=== PATIENT | female | born 1950 | race Caucasian/White ===

== ENCOUNTER → 2018-07-13 | Outpatient (CLI) | payer OTHER ==
[~2018-07-13] MED LIST: COUMADIN 5 MG TA5 M1 PO; FISH OIL + VIT1 EACH PO; FOLIC ACID 1 MG1 MG PO; FOLIC ACID1 MG PO; LOVENOX SQ; METHOCARBAMOL500 M1 PO; NAPROSYN250 MG PO; NAPROSYN375 MG PO; NEPHROCAPS SOFT1 CAP PO; NORCO 5-325 TA1 EACH PO; PREMARIN0.625 MG PO; RHEUMATREX2.5 MG PO; SULFASALAZINE500 M4 PO; THERA-M CAPLET1 EACH PO; TRAMADOL 50 MG50 MG PO; VITAMIN D1000 UNI1 PO; ZOLOFT 50 MG TA50 M1 PO
== END ==
LOC: RAD 04:53
DX: Z12.31 Encounter for screening mammogram for malignant neoplasm of breast (principal)

== ENCOUNTER → 2019-07-15 | Outpatient (CLI) | payer OTHER | LOC: RAD 06-27 09:20 | DX: Z12.31 Encounter for screening mammogram for malignant neoplasm of breast (principal) ==

== ENCOUNTER → 2020-04-27 | Outpatient (CLI) | payer OTHER | LOC: RAD 11:34 | PROVIDERS: ATTEND Internal Medicine Rheumatology | DX: M25.78 Osteophyte, vertebrae (principal) ==

== ENCOUNTER → 2020-06-02 | Outpatient (CLI) | payer OTHER | LOC: MRI 09:24 | PROVIDERS: ATTEND Internal Medicine Rheumatology | DX: M50.21 Other cervical disc displacement, high cervical region (principal); M85.68 Other cyst of bone, other site; M43.22 Fusion of spine, cervical region; M47.812 Spondylosis without myelopathy or radiculopathy, cervical region; M48.02 Spinal stenosis, cervical region ==

== ENCOUNTER → 2020-08-10 | Outpatient (CLI) | payer OTHER ==
[~2020-08-10] VITALS: Ht 160 cm; Wt 77.1 kg
[~2020-08-10] MED LIST changes: +LOW DOSE ASPIRI81 M1 PO; +NEURONTIN100 MG PO
[2020-08-10 13:40] VITALS: BP 145/80
--- NOTE | 2020-08-10 13:57 | NUR ---
Pain Clinic Assessment: 1. History of Osteoarthritis: DENIES History of Rheumatoid Arthritis: HANDS NECK KNEES 2. Height: 5 ft. 3 in. 160.0 cm. Weight: 170.0 lb. oz. 77.112 kg. Patient's BMI: 30.1 3. Vital Signs: BP: 145/80 Pulse: 64 Resp: 16 Temp: 02 Sat: 97 ECG Mon: 4. Pain Intensity: 8 5. Fall Risk: Dizziness: N Needs help standing or walking: N Fallen in the last 3 months: N Fall risk comments: 6. Patient on Blood Thinner: None 7. History of Hypertension: N 8. Opioid Therapy greater than 6 weeks: N Opiate Contract Signed: 9. Risk Assessment Tool Provided: 1/LOW RISK 10. Functional Assessment Tool: 36 11. Recreational Drug Use: Never Drug Type: Tobacco Use: Never Smoker Tobacco Type: Amount or Packs/day: How Many Years: Alcohol Use: Yes Frequency: Weekly Quant: 1-2 DRINKS
== END ==
LOC: PAIN 06:51
PROVIDERS: ATTEND Anesthesiology Pain Medicine
DX: R51.9 Headache, unspecified (principal); M06.9 Rheumatoid arthritis, unspecified; M43.22 Fusion of spine, cervical region; G62.9 Polyneuropathy, unspecified; Z96.641 Presence of right artificial hip joint

== ENCOUNTER 2020-12-21 11:00 | Inpatient (IN) | payer OTHER ==
[~2020-12-21] VITALS: Ht 160 cm; Wt 71.7 kg
[2020-12-21 11:12] VITALS: BP 119/71
[2020-12-21 11:52] LABS: ABSOLUTE NEUTROPHILS 10.4 thou/uL (1.4-8.2); BASOPHILS 0.7 % (0.0-2.0); EOSINOPHILS 0.4 % (0.0-3.0); HEMATOCRIT 40.6 % (37.0-47.0); HEMOGLOBIN 13.9 gm/dL (12.0-15.0); MCH 32.9 pg (26.0-34.0); MCHC 34.2 g/dL (28.0-37.0); MCV 96.2 fL (80.0-100.0); MONOCYTES 8.3 % (1.0-8.0); PLATELET COUNT 180 thou/uL (150-400); POLYS 81.6 % (36.0-66.0); RBC 4.22 mil/uL (4.20-5.00); RDW 13.6 % (10.5-14.5); WBC 12.7 thou/uL (4.0-11.0)
[2020-12-21 12:03] LABS: CALCIUM 10.5 mg/dL (8.5-10.1); CREATININE 0.9 mg/dL (0.6-1.0); POTASSIUM 3.7 mmol/L (3.5-5.1)
[2020-12-21 12:09] LABS: ALBUMIN 3.9 g/dL (3.4-5.0); TOTAL BILIRUBIN 0.7 mg/dL (0.2-1.0); TOTAL PROTEIN 7.4 g/dL (6.4-8.2)
[2020-12-21 15:10] VITALS: BP 127/58
[2020-12-21 18:25] VITALS: BP 123/61
[2020-12-21 19:49] VITALS: BP 128/69
--- NOTE | 2020-12-21 20:00 | NUR ---
Pt. admitted earlier during the first shift. She is alert and oriented. Pt. offers no complaints. Admisssion assessment and history is completed.
--- NOTE | 2020-12-22 06:00 | NUR ---
Pt. rested quietly during the night when checked on during frequent rounds. She offers no c/o pain. Pt. did have a small amount of reddish colored watery stool.
[2020-12-22 06:08] LABS: ABSOLUTE NEUTROPHILS 8.4 thou/uL (1.4-8.2); BASOPHILS 0.6 % (0.0-2.0); HEMATOCRIT 36.9 % (37.0-47.0); HEMOGLOBIN 12.3 gm/dL (12.0-15.0); LYMPHOCYTES 15.5 % (24.0-44.0); MCH 32.5 pg (26.0-34.0); MCHC 33.4 g/dL (28.0-37.0); MCV 97.2 fL (80.0-100.0); MONOCYTES 7.6 % (1.0-8.0); PLATELET COUNT 155 thou/uL (150-400); POLYS 75.3 % (36.0-66.0); RBC 3.79 mil/uL (4.20-5.00); RDW 13.7 % (10.5-14.5); WBC 11.1 thou/uL (4.0-11.0)
[2020-12-22 06:17] LABS: CREATININE 0.7 mg/dL (0.6-1.0); MAGNESIUM 1.9 mg/dL (1.8-2.4); POTASSIUM 3.3 mmol/L (3.5-5.1)
[2020-12-22 06:26] LABS: CALCIUM 8.4 mg/dL (8.5-10.1)
[2020-12-22 07:52] VITALS: BP 104/57
--- NOTE | 2020-12-22 13:22 | NUR ---
Received awake on bed. Due medications given as prescribed, able to swallow meds w/o difficulty. On room air. Vital signs stable. On MS, not on telemetry; no complains and signs of chest pain, crushing sensation and heaviness. Assisted in ADLs. On clear liquids- tolerating well; no nausea, no vomiting and no abdominal pain noted; advanced diet. Continent of bowel and bladder, able to use bedside commode for bowel and bladder- output measured and recorded accordingly. Falls bundle in place. With NS at 100cc/hr, infusing well at L FA. Complained of pain, requesting for stronger meds aside from Tylenol- Dr Reyes informed; also complaining that her arthritis meds not restarted- Dr Reyes said he will review pt's meds first. To continue monitoring patient.
[2020-12-22 15:34] VITALS: BP 100/53
[2020-12-22 19:45] VITALS: BP 111/49
--- NOTE | 2020-12-23 05:33 | NUR ---
Pt. rested quietly at intervals during the night when checked on during frequent rounds. She offers no c/o pain. Stool sample was collected and sent down to the lab.
[2020-12-23 05:57] LABS: HEMATOCRIT 33.8 % (37.0-47.0); HEMOGLOBIN 11.4 gm/dL (12.0-15.0); MCH 32.7 pg (26.0-34.0); MCHC 33.6 g/dL (28.0-37.0); MCV 97.1 fL (80.0-100.0); RBC 3.48 mil/uL (4.20-5.00); RDW 13.3 % (10.5-14.5); WBC 8.7 thou/uL (4.0-11.0)
[2020-12-23 06:03] LABS: CALCIUM 7.9 mg/dL (8.5-10.1); CREATININE 0.7 mg/dL (0.6-1.0); POTASSIUM 3.4 mmol/L (3.5-5.1)
[2020-12-23 07:44] VITALS: BP 112/73
--- NOTE | 2020-12-23 14:30 | NUR ---
Chart reviewed and case discussed with the care team. Family Educator visited with the pt at bedside. Pt is sleepy but oriented x4. She lives with her dtr Diana and is indep with marilyn and adl's. Her pcp is Dr. Gonzalez at [facility]. She denies any dc needs or concerns. She reports feeling a little better but still with some abdominal pain. She is on a liquid diet and GI workup in progress. Cdiff negative. IV atb x 2 for ischemic colitis. Cm role introduced should dc needs arise.
--- NOTE | 2020-12-23 17:33 | NUR ---
ASSUMED CARE OF PATIENT AT SHIFT CHANGE. ASSESSMENT CHARTED. MEDS ADMINISTERED PER NOV. VSS. NO S/S OF DISTRESS. TOLERATING PO INTAKE WELL W NO ISSUES. PATIENT IS A&OX4 AND MAKES NEEDS KNOW. UP SBA TO [facility]/BATHROOM. PATIENT DENIES PAIN BUT DOES VOICE ABDOMINAL DISCOMFORT AT TIMES, TERRI. AMBULATING. ALICE BLOOD WHEN WIPING STILL PRESENT. PROVIDER AWARE. PATIENT SHOWERED TODAY AND DID WELL; NO ISSUES WITH ADL'S. NO NEW NEEDS NOTED. PROVIDER CLEARED PATIENT FOR DISCHARGE TOMORROW 12/24/20. C-DIFF WAS NEGATIVE. FALL PRECAUTIONS IN PLACE. WILL CONTINUE FREQUENT MONITORING ON PATIENT.
[2020-12-23 19:32] VITALS: BP 127/59
--- NOTE | 2020-12-24 02:47 | NUR ---
PT IS A/O X4 AND IS UP AD DAYDAY TO THE [facility]. ROOM AIR. VSS. NO BM THIS SHIFT. C/O NECK PAIN. PRN PAIN MEDICATION GIVEN DIRECTED. WARM COMPRESS PROVIDED. AT THIS TIME PT IS LYING IN HER BED AND APPEARS TO BE SLEEPING WITH EYES CLOSED. CALL LIGHT IS WITHIN REACH.
[2020-12-24 05:44] LABS: HEMATOCRIT 34.4 % (37.0-47.0); HEMOGLOBIN 11.7 gm/dL (12.0-15.0); MCH 32.9 pg (26.0-34.0); MCV 96.8 fL (80.0-100.0); RBC 3.55 mil/uL (4.20-5.00); RDW 13.5 % (10.5-14.5); WBC 5.9 thou/uL (4.0-11.0)
[2020-12-24 06:11] LABS: CALCIUM 8.5 mg/dL (8.5-10.1); CREATININE 0.7 mg/dL (0.6-1.0); POTASSIUM 3.7 mmol/L (3.5-5.1)
[2020-12-24 07:00] VITALS: BP 139/72
[2020-12-24] MEDS ORDERED: TRAMADOL 50 MG50 MG PO (09:43)
[2020-12-24] MEDS ORDERED: CIPRO500 M1 PO (12:17)
[2020-12-24] MEDS ORDERED: FLAGYL500 M1 PO (12:17)
[2020-12-24 12:24] VITALS: BP 139/72
--- NOTE | 2020-12-24 13:20 | NUR ---
PATIENT ALERT/ORIENTED. VSS. VOICES NO NEEDS OR CONCERNS. DR. LENZ AND GI DOCTOR ROUNDED, DETERMINED OKAY FOR PATIENT TO DISCHARGE. DISCHARGE INSTRUCTIONS REVIEWED WITH PATIENT. SCRIPTS GIVEN. PATIENT AWARE OF NEED FOR FOLLOW UP APPOINTMENT WITH GI DOCTOR. IV DISCONTINUED. PATIENT DISCHARGED WITH SIGNIFICANT OTHER.
[2020-12-24 13:22] VITALS: BP 139/72
--- NOTE | 2020-12-24 13:46 | NUR ---
CARE TEAM INDICATED THAT PT IS MEDICALLY STABLE TO DC HOME THIS DAY. PT IS TO DC HOME TO SELF CARE. PT HAS TRANSPORTATION. NO OTHER CM INTERVENTION INDICATED. CASE CLOSED.
== END 2020-12-24 12:46 | disposition home or self-care (01) | DRG 394 ==
LOC: ER 11:00 → 4W 13:24 → EROBS 13:24 → 4W 18:14
PROVIDERS: Emergency Medicine; Nurse Practitioner; ADMIT Hospitalist; ATTEND Hospitalist
DX: K55.9 Vascular disorder of intestine, unspecified (principal); K92.1 Melena; A09 Infectious gastroenteritis and colitis, unspecified; Z96.642 Presence of left artificial hip joint; M06.9 Rheumatoid arthritis, unspecified; G62.9 Polyneuropathy, unspecified; D72.829 Elevated white blood cell count, unspecified; F32.9 Major depressive disorder, single episode, unspecified; M19.90 Unspecified osteoarthritis, unspecified site; Z86.010 Personal history of colon polyps; Z90.49 Acquired absence of other specified parts of digestive tract; Z90.710 Acquired absence of both cervix and uterus; Z79.82 Long term (current) use of aspirin; Z79.899 Other long term (current) drug therapy; Z80.0 Family history of malignant neoplasm of digestive organs
CPT/HCPCS: 10040